=== PATIENT | male | born 1980 | race African-American/Black ===

== ENCOUNTER → 2020-11-21 | Outpatient (CLI) | payer OTHER | LOC: LAB 08:00 | PROVIDERS: ATTEND Internal Medicine Cardiovascular Disease | DX: Z20.822 Contact with and (suspected) exposure to COVID-19 (principal) | CPT/HCPCS: U0003 ==

== ENCOUNTER → 2020-11-29 | Outpatient (CLI) | payer OTHER | LOC: LAB 12:30 | PROVIDERS: ATTEND Internal Medicine Cardiovascular Disease | DX: Z20.822 Contact with and (suspected) exposure to COVID-19 (principal) | CPT/HCPCS: C9803; U0003 ==

== ENCOUNTER → 2020-12-29 | Outpatient (CLI) | payer OTHER ==
--- NOTE | 2020-12-29 13:29 | RAD ---
EXAM: Right ankle, 3 views. HISTORY: Chronic pain. COMPARISON: None. FINDINGS: 3 views of the right ankle are obtained. There is no fracture, dislocation or subluxation. The ankle mortise is intact. There is no osteochondral lesion. There is a large enthesophyte at the A chilles tendon insertion. There is a tiny plantar spur. IMPRESSION: No acute osseous finding. Electronically signed by: Cindy Graves MD (12/29/2020 1:27 PM) [id number]
== END ==
LOC: RAD 12:54
PROVIDERS: ATTEND Podiatrist
DX: M77.8 Other enthesopathies, not elsewhere classified (principal); M25.571 Pain in right ankle and joints of right foot
CPT/HCPCS: 73610

== ENCOUNTER → 2021-02-24 | Outpatient (CLI) | payer OTHER ==
[2021-02-24 16:19] LABS: BILIRUBIN,URINE NEG (NEG); CLARITY,URINE CLEAR; COLOR,URINE YELLOW; GLUCOSE,URINE >=1000 mg/dL (NEG)
[2021-02-24 16:20] LABS: BACTERIA,URINE 0 /HPF (0-FEW); NITRITE,URINE NEG (NEG); RBC,URINE 0 /HPF (0-2); UROBILINOGEN,URINE 0.2 mg/dL (0.2 mg/dL); WBC,URINE 0 /HPF (0-4)
== END ==
LOC: LAB 14:42
PROVIDERS: ATTEND Emergency Medicine
DX: R35.89 Other polyuria (principal)
CPT/HCPCS: 36415; 81001; 87491; 87591

== ENCOUNTER → 2021-07-31 | Outpatient (CLI) | payer OTHER ==
--- NOTE | 2021-07-31 17:43 | RAD ---
Exam: Thoracic spine Date: 07/31/2021 4:36 PM CLINICAL HISTORY: Reason: BACK PAIN X 2 WEEKS. / Spl. Instructions: / History: COMPARISON: None available. FINDINGS: AP and lateral/swimmers views of the thoracic spine submitted. There is severe superimposed artifact at the cervical thoracic junction on the lateral view per techniques. Exam shows grossly preserved disc height throughout. Vertebral body heights are preserved. Negative m alalignment. Negative focal paraspinal line deviation/hematoma. IMPRESSION: 1. Negative acute fracture or subluxation. Electronically signed by: Dakota Meade MD (07/31/2021 5:41 PM) ORSA
--- NOTE | 2021-07-31 17:44 | RAD ---
EXAM: AP, lateral and lumbosacral spot views of the lumbar spine DATE: 07/31/2021 4:36 PM INDICATION: Reason: BACK PAIN X 2 WEEKS. 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 Instructions: / History: COMPARISON: No Prior FINDINGS: For the purposes of this report there are 5 nonrib-bearing lumbar-type vertebral bodies. Vertebral david dy heights are preserved. Mild L4-5 disc height loss. Mild L3-4, L4-5 and L5-S1 facet degenerative ch jahaira. No spondylolisthesis. No acute fracture. IMPRESSION: 1. Negative acute fracture or subluxation. Electronically signed by: Dakota Meade MD (07/31/2021 5:41 PM) ROSA
== END ==
LOC: PMG 16:11
PROVIDERS: ATTEND Nurse Practitioner Family
DX: M47.817 Spondylosis without myelopathy or radiculopathy, lumbosacral region (principal); M54.6 Pain in thoracic spine
CPT/HCPCS: 72072; 72100